=== PATIENT | male | born 1970 | race Caucasian/White ===

== ENCOUNTER 2017-04-23 13:39 | Emergency (ER) | payer OTHER, BC ==
[2017-04-23 13:50] VITALS: BP 148/94
[2017-04-23] MEDS ORDERED: Acetaminophen/oxyCODONE 325-5 MG Tab PO ONE (14:00)
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
--- NOTE | 2017-04-24 09:06 | CR ---
Right wrist: Four views of the right wrist were obtained. Comparison: No previous study. Fracture identified at the base of the radial styloid process within the distal radius. Articular extension is seen. No additional fracture or other abnormality is appreciated. Soft tissue swelling is also present. Impression: 1. Distal radial fracture remaining close to anatomic in alignment. Fracture shows articular extension. 2. Soft tissue swelling. Diagnostic code #3
== END 2017-04-23 16:33 | disposition home or self-care (01) ==
LOC: MERGE 13:39 → JD.ED 13:39
DX: S52.501A Unspecified fracture of the lower end of right radius, initial encounter for closed fracture (principal); Z88.8 Allergy status to other drugs, medicaments and biological substances; Z98.890 Other specified postprocedural states; V87.8XXA Person injured in other specified noncollision transport accidents involving motor vehicle (traffic), initial encounter
CPT/HCPCS: 29125; 73110; 99283; A9270